=== PATIENT | female | born 1985 | race Caucasian/White ===

== ENCOUNTER 2020-02-27 13:17 | Emergency (ER) | payer OTHER ==
[~2020-02-27] VITALS: Ht 167.6 cm; Wt 59.0 kg
[2020-02-27] MEDS ORDERED: SYNTHROID75 MCG PO (13:32)
[2020-02-27] MEDS ORDERED: ADULT LOW DOSE81 M1 PO (13:32)
[2020-02-27] MEDS ORDERED: ZOLOFT25 MG PO (13:32)
[2020-02-27] MEDS ORDERED: PRENATE ELITE1 EAC2 PO (13:33)
[2020-02-27] MEDS ORDERED: ACETAMINOPHEN650 M2 PO (19:12)
== END 2020-02-27 20:08 | disposition home or self-care (01) ==
LOC: ER 13:17
DX: O98.512 Other viral diseases complicating pregnancy, second trimester (principal); B34.9 Viral infection, unspecified; A90 Dengue fever [classical dengue]; Z3A.23 23 weeks gestation of pregnancy; Z03.818 Encounter for observation for suspected exposure to other biological agents ruled out